=== PATIENT | female | born 1980 | race Two or more races ===

== ENCOUNTER → 2016-04-30 | Outpatient (CLI) | payer OTHER ==
[2016-04-11 14:30] VITALS: BP 92/57
[~2016-04-30] MED LIST: FERR-26 PO; PNV1TABL25 PO
[2016-04-30 12:50] LABS: BILIRUBIN,URINE NEGATIVE (NEG); GLUCOSE,URINE NEGATIVE (NEG); NITRITE,URINE POSITIVE (NEG); PH,URINE 5.5; PROTEIN,URINE NEGATIVE (NEG-TRACE); UROBILINOGEN,URINE 0.2 mg/dL (0.2 mg/dL)
[2016-04-30 12:53] LABS: HEMATOCRIT 30.6 % (36.0-47.0); HEMOGLOBIN 9.9 g/dL (12.0-15.5); RED BLOOD COUNT 3.86 x10^6/uL (3.50-5.40); RED CELL DISTRIBUTION WIDTH 18.5 % (11.5-14.5)
== END | disposition home or self-care (01) ==
LOC: LAB 12:29
PROVIDERS: ATTEND Family Medicine
DX: D64.9 Anemia, unspecified (principal); R30.0 Dysuria
CPT/HCPCS: 36415; 81003; 85027

== ENCOUNTER → 2017-04-13 | Outpatient (CLI) | payer OTHER ==
[2016-04-11 14:30] VITALS: BP 92/57
== END | disposition home or self-care (01) ==
LOC: SPEC 14:54
DX: N39.0 Urinary tract infection, site not specified (principal)
CPT/HCPCS: 87086

== ENCOUNTER → 2017-04-28 | Outpatient (CLI) | payer OTHER | END | disposition home or self-care (01) | LOC: KCIC US 08:06 | DX: O09.292 Supervision of pregnancy with other poor reproductive or obstetric history, second trimester (principal); Z3A.16 16 weeks gestation of pregnancy; N88.3 Incompetence of cervix uteri | CPT/HCPCS: 76801; 76817 ==

== ENCOUNTER → 2017-04-29 | Outpatient (CLI) | payer OTHER | END | disposition home or self-care (01) | LOC: SPEC 14:27 | DX: Z34.92 Encounter for supervision of normal pregnancy, unspecified, second trimester (principal); Z3A.14 14 weeks gestation of pregnancy | CPT/HCPCS: 87491; 87591 ==

== ENCOUNTER → 2017-05-01 | Outpatient (CLI) | payer OTHER ==
[2017-05-01 13:07] LABS: ADD MAN DIFF? NO
[2017-05-01 13:15] LABS: BASO # 0.1 x10^3/uL (0.0-0.2); BASO % 1 % (0-3); EOS # 0.1 x10^3/uL (0.0-0.7); EOS % 1 % (0-3); HEMATOCRIT 31.8 % (36.0-47.0); HEMOGLOBIN 10.2 g/dL (12.0-15.5); LYMPH # 1.6 x10^3/uL (1.0-4.8); LYMPH % 17 % (24-48); MEAN CORPUSCULAR HEMOGLOBIN 24 pg (25-35); MEAN CORPUSCULAR HGB CONC 32 g/dL (31-37); MEAN CORPUSCULAR VOLUME 75 fL (79-100); MONO # 0.4 x10^3/uL (0.0-1.1); MONO % 4 % (0-9); NEUT # 7.3 x10^3uL (1.8-7.7); NEUT % 77 % (31-73); PLATELET COUNT 223 x10^3/uL (140-400); RED BLOOD COUNT 4.27 x10^6/uL (3.50-5.40); RED CELL DISTRIBUTION WIDTH 18.6 % (11.5-14.5); WHITE BLOOD COUNT 9.4 x10^3/uL (4.0-11.0)
[2017-05-01 13:18] LABS: BILIRUBIN,URINE NEGATIVE (NEG); CLARITY,URINE CLEAR; COLOR,URINE YELLOW; GLUCOSE,URINE NEGATIVE (NEG); NITRITE,URINE NEGATIVE (NEG); PH,URINE 6.5; PROTEIN,URINE NEGATIVE (NEG-TRACE); UROBILINOGEN,URINE 0.2 mg/dL (0.2 mg/dL)
[2017-05-01 13:59] LABS: BACTERIA,URINE FEW /HPF (0-FEW); RBC,URINE 0 /HPF (0-2)
[2017-05-01 14:00] LABS: SQUAMOUS EPITHELIAL CELL,UR MOD /LPF
[2017-05-01 23:10] LABS: HIV ANTIBODY Non Reactive (Non Reactive)
[2017-05-02 01:10] LABS: HEP B SURFACE AG Negative (Negative)
[2017-05-03 21:11] LABS: RPR Non Reactive (Non Reactive)
== END | disposition home or self-care (01) ==
LOC: LAB 12:11
DX: Z34.92 Encounter for supervision of normal pregnancy, unspecified, second trimester (principal); Z3A.14 14 weeks gestation of pregnancy
CPT/HCPCS: 36415; 81001; 85025; 86593; 86703; 86762; 86850; 86900; 86901; 87086; 87340

== ENCOUNTER → 2017-05-11 | Outpatient (CLI) | payer OTHER ==
[2017-05-11 14:21] LABS: ADD MAN DIFF? NO
[2017-05-11 14:29] LABS: BASO % 0 % (0-3); EOS # 0.1 x10^3/uL (0.0-0.7); EOS % 1 % (0-3); HEMATOCRIT 32.6 % (36.0-47.0); HEMOGLOBIN 10.5 g/dL (12.0-15.5); LYMPH # 1.9 x10^3/uL (1.0-4.8); LYMPH % 19 % (24-48); MEAN CORPUSCULAR HEMOGLOBIN 25 pg (25-35); MEAN CORPUSCULAR HGB CONC 32 g/dL (31-37); MEAN CORPUSCULAR VOLUME 76 fL (79-100); MONO # 0.5 x10^3/uL (0.0-1.1); MONO % 5 % (0-9); NEUT # 7.4 x10^3uL (1.8-7.7); NEUT % 74 % (31-73); PLATELET COUNT 247 x10^3/uL (140-400); RED BLOOD COUNT 4.26 x10^6/uL (3.50-5.40); RED CELL DISTRIBUTION WIDTH 18.6 % (11.5-14.5); WHITE BLOOD COUNT 9.9 x10^3/uL (4.0-11.0)
[2017-05-11 14:45] LABS: ALBUMIN/GLOBULIN RATIO 0.8 (1.0-1.7); ALK PHOS 47 U/L (46-116); ALT (SGPT) 11 U/L (14-59); ANION GAP 10 (6-14); AST (SGOT) 13 U/L (15-37); BLOOD UREA NITROGEN 12 mg/dL (7-20); BUN/CREATININE RATIO 17 (6-20); CALCIUM 8.6 mg/dL (8.5-10.1); CARBON DIOXIDE 27 mmol/L (21-32); CHLORIDE 103 mmol/L (98-107); CREATININE 0.7 mg/dL (0.6-1.0); GFR 94.2; GLUCOSE 72 mg/dL (70-99); POTASSIUM 3.7 mmol/L (3.5-5.1); SODIUM 140 mmol/L (136-145); TOTAL BILIRUBIN 0.2 mg/dL (0.2-1.0)
== END | disposition home or self-care (01) ==
LOC: LAB 14:22
DX: R42 Dizziness and giddiness (principal); R51 Headache
CPT/HCPCS: 36415; 80053; 85025

== ENCOUNTER → 2017-06-03 | Outpatient (CLI) | payer OTHER | END | disposition home or self-care (01) | LOC: US 15:08 | DX: Z34.92 Encounter for supervision of normal pregnancy, unspecified, second trimester (principal); Z3A.19 19 weeks gestation of pregnancy | CPT/HCPCS: 76805 ==

== ENCOUNTER → 2017-08-03 | Outpatient (CLI) | payer OTHER ==
[2017-08-03 10:06] LABS: ADD MAN DIFF? NO
[2017-08-03 10:16] LABS: BASO % 1 % (0-3); EOS # 0.1 x10^3/uL (0.0-0.7); EOS % 1 % (0-3); HEMATOCRIT 34.3 % (36.0-47.0); HEMOGLOBIN 11.5 g/dL (12.0-15.5); LYMPH # 1.7 x10^3/uL (1.0-4.8); LYMPH % 21 % (24-48); MEAN CORPUSCULAR HEMOGLOBIN 28 pg (25-35); MEAN CORPUSCULAR HGB CONC 34 g/dL (31-37); MEAN CORPUSCULAR VOLUME 83 fL (79-100); MONO # 0.5 x10^3/uL (0.0-1.1); MONO % 7 % (0-9); NEUT # 5.6 x10^3uL (1.8-7.7); NEUT % 71 % (31-73); PLATELET COUNT 176 x10^3/uL (140-400); RED BLOOD COUNT 4.11 x10^6/uL (3.50-5.40); RED CELL DISTRIBUTION WIDTH 16.9 % (11.5-14.5)
[2017-08-04 06:21] LABS: RPR Non Reactive (Non Reactive)
== END | disposition home or self-care (01) ==
LOC: LAB 08:26
DX: Z34.93 Encounter for supervision of normal pregnancy, unspecified, third trimester (principal); Z3A.28 28 weeks gestation of pregnancy
CPT/HCPCS: 36415; 82950; 85025; 86593

== ENCOUNTER 2017-10-12 15:05 | Observation (INO) | payer OTHER ==
[2017-10-12 16:50] LABS: AMNIO PT NEGATIVE; NEG OBC AMNIO NEG; POS OBC AMNIO POS
== END 2017-10-12 18:30 | disposition home or self-care (01) ==
LOC: 3 SO LND 15:05
DX: O99.89 Other specified diseases and conditions complicating pregnancy, childbirth and the puerperium (principal); M54.9 Dorsalgia, unspecified; Z3A.37 37 weeks gestation of pregnancy
CPT/HCPCS: 36415; 84112; G0378; G0379

== ENCOUNTER 2017-10-28 00:20 | Inpatient (IN) | payer OTHER ==
[2017-10-28 00:45] LABS: BILIRUBIN,URINE NEGATIVE (NEG); CLARITY,URINE CLEAR; COLOR,URINE YELLOW; GLUCOSE,URINE NEGATIVE (NEG); NITRITE,URINE NEGATIVE (NEG); PROTEIN,URINE NEGATIVE (NEG-TRACE); UROBILINOGEN,URINE 0.2 mg/dL (0.2 mg/dL)
[2017-10-28 01:04] LABS: BACTERIA,URINE MODERATE /HPF (0-FEW); RBC,URINE RARE /HPF (0-2)
[2017-10-28 01:05] LABS: SQUAMOUS EPITHELIAL CELL,UR MOD /LPF
[2017-10-28] MEDS: IV RINGERS,LACTATED 1000ML 1,000 ML IV (01:23)
[2017-10-28] MEDS ORDERED: ONDANSETRON PF 4 MG/2 ML VIAL. IV (02:30)
[2017-10-28] MEDS ORDERED: IV RINGERS,LACTATED 1000ML 1,000 ML IV (02:30)
[2017-10-28] MEDS ORDERED: LIDOCAINE 1% PF 30 ML VIAL. INJ (02:30)
[2017-10-28] MEDS ORDERED: TERBUTALINE 1 MG/ML VIAL. SQ (02:30)
[2017-10-28] MEDS ORDERED: OXYTOCIN 30 UNIT/500 ML PREMIX 500 ML IV (02:30)
[2017-10-28] MEDS ORDERED: 0.9 % SODIUM CHLORIDE 10 ML DISP.SYRIN. IV (02:30)
[2017-10-28 03:02] LABS: ADD MAN DIFF? NO
[2017-10-28 03:11] LABS: BASO # 0.1 x10^3/uL (0.0-0.2); BASO % 1 % (0-3); EOS % 0 % (0-3); HEMOGLOBIN 11.3 g/dL (12.0-15.5); LYMPH # 2.6 x10^3/uL (1.0-4.8); LYMPH % 20 % (24-48); MEAN CORPUSCULAR HEMOGLOBIN 27 pg (25-35); MEAN CORPUSCULAR HGB CONC 33 g/dL (31-37); MEAN CORPUSCULAR VOLUME 82 fL (79-100); MONO # 0.8 x10^3/uL (0.0-1.1); MONO % 6 % (0-9); NEUT # 9.4 x10^3uL (1.8-7.7); NEUT % 73 % (31-73); PLATELET COUNT 199 x10^3/uL (140-400); RED BLOOD COUNT 4.14 x10^6/uL (3.50-5.40); RED CELL DISTRIBUTION WIDTH 15.4 % (11.5-14.5); WHITE BLOOD COUNT 12.9 x10^3/uL (4.0-11.0)
[2017-10-28] MEDS ORDERED: L&D EPIDURAL SYRINGE 50 ML EP (03:37)
[2017-10-28] MEDS ORDERED: ROPIVacaine 0.2% IN 0.9%NACL PF 40 MG/20 ML DISP.SYRIN. ×2 (03:37→04:00)
[2017-10-28] MEDS ORDERED: OXYTOCIN PREMIX 30 UNIT/500 ML BAG. IV (04:00)
[2017-10-28] MEDS ORDERED: L&D EPIDURAL 50 ML SYRINGE. EP (04:00)
[2017-10-28] MEDS: IBUPROFEN 800 MG TABLET. PO ×2 (06:39→17:45)
[2017-10-28] MEDS: OXYTOCIN 30 UNIT/500 ML PREMIX 500 ML IV (07:47)
[2017-10-28] MEDS ORDERED: BENZOCAINE 20% TOPICAL AEROSOL SPRAY 57GM CAN. TP (09:30)
[2017-10-28] MEDS: ACETAMINOPHEN 325 MG TABLET. PO (22:00)
[2017-10-29] MEDS: IBUPROFEN 800 MG TABLET. PO ×2 (03:33→17:27)
[2017-10-29 05:37] LABS: HEMATOCRIT 25.3 % (36.0-47.0)
[2017-10-29 05:37] LABS: HEMOGLOBIN 8.4 g/dL (12.0-15.5)
[2017-10-29] MEDS: ACETAMINOPHEN 325 MG TABLET. PO (07:55)
[2017-10-29] MEDS: DOCUSATE SODIUM 100 MG CAPSULE. PO (17:27)
[2017-10-29] MEDS: FERROUS SULFATE 325 MG TABLET. PO (17:28)
[2017-10-30] MEDS: DOCUSATE SODIUM 100 MG CAPSULE. PO (09:29)
[2017-10-30] MEDS: FERROUS SULFATE 325 MG TABLET. PO (09:29)
[2017-10-30] MEDS: medroxyPROGESTERone IM 150 MG/ML VIAL. IM (12:06)
== END 2017-10-30 13:00 | disposition home or self-care (01) | DRG 775 ==
LOC: 3 SO LND 00:20 → 3 NORTH 09:23
PROC: 10E0XZZ Delivery of Products of Conception, External Approach (ICD-10-PCS; principal; 2017-10-28)
PROC: 0DQR0ZZ Repair Anal Sphincter, Open Approach (ICD-10-PCS; 2017-10-28)
PROC: 00HU33Z Insertion of Infusion Device into Spinal Canal, Percutaneous Approach (ICD-10-PCS; 2017-10-28)
PROC: 3E0R3BZ Introduction of Anesthetic Agent into Spinal Canal, Percutaneous Approach (ICD-10-PCS; 2017-10-28)
DX: O77.0 Labor and delivery complicated by meconium in amniotic fluid (principal); O70.20 Third degree perineal laceration during delivery, unspecified; D62 Acute posthemorrhagic anemia; Z37.0 Single live birth; Z3A.39 39 weeks gestation of pregnancy; O69.81X0 Labor and delivery complicated by cord around neck, without compression, not applicable or unspecified; O66.0 Obstructed labor due to shoulder dystocia; D64.9 Anemia, unspecified
CPT/HCPCS: 36415; 81001; 85014; 85018; 85025; 85027; 86592; 86850; 86900; 86901; 87086; G0378; J2590; J2795; J7120

== ENCOUNTER → 2019-09-23 | Outpatient (CLI) | payer OTHER ==
[2017-10-30 11:38] VITALS: BP 107/64
[~2019-09-23] MED LIST changes: -FERR-26 PO; +FERR325T14 PO
[2019-09-23 11:42] LABS: HEMATOCRIT 38.6 % (36.0-47.0); HEMOGLOBIN 12.9 g/dL (12.0-15.5); RED BLOOD COUNT 4.49 x10^6/uL (3.50-5.40); RED CELL DISTRIBUTION WIDTH 14.7 % (11.5-14.5); WHITE BLOOD COUNT 6.1 x10^3/uL (4.0-11.0)
[2019-09-23 11:53] LABS: ALBUMIN 3.9 g/dL (3.4-5.0); ALBUMIN/GLOBULIN RATIO 1.3 (1.0-1.7); CALCIUM 8.8 mg/dL (8.5-10.1); GFR 61.7; POTASSIUM 4.4 mmol/L (3.5-5.1); TOTAL BILIRUBIN 0.4 mg/dL (0.2-1.0)
[2019-09-23 23:08] LABS: HEMOGLOBIN A1C 5.1 % (4.8-5.6)
== END | disposition home or self-care (01) ==
LOC: LAB 11:15
PROVIDERS: ATTEND Family Medicine
DX: Z86.32 Personal history of gestational diabetes (principal); Z86.2 Personal history of diseases of the blood and blood-forming organs and certain disorders involving the immune mechanism
CPT/HCPCS: 36415; 80053; 83036; 84436; 84443; 85027

== ENCOUNTER → 2020-02-29 | Outpatient (CLI) | payer OTHER ==
[2017-10-30 11:38] VITALS: BP 107/64
[2020-03-01 03:09] LABS: HEMOGLOBIN A1C 5.1 % (4.8-5.6)
== END ==
LOC: LAB 11:02
PROVIDERS: ATTEND Nurse Practitioner Gerontology
DX: R73.9 Hyperglycemia, unspecified (principal)
CPT/HCPCS: 36415; 83036

== ENCOUNTER → 2021-01-17 | Outpatient (CLI) | payer OTHER ==
[2017-10-30 11:38] VITALS: BP 107/64
[2021-01-17 08:47] LABS: BASO % 0 % (0-3); EOS # 0.1 x10^3/uL (0.0-0.7); EOS % 1 % (0-3); HEMATOCRIT 40.4 % (36.0-47.0); HEMOGLOBIN 13.5 g/dL (12.0-15.5); LYMPH # 1.6 x10^3/uL (1.0-4.8); LYMPH % 18 % (24-48); MEAN CORPUSCULAR HEMOGLOBIN 28 pg (25-35); MEAN CORPUSCULAR HGB CONC 34 g/dL (31-37); MEAN CORPUSCULAR VOLUME 85 fL (79-100); MONO # 0.4 x10^3/uL (0.0-1.1); MONO % 5 % (0-9); NEUT # 6.7 x10^3/uL (1.8-7.7); NEUT % 76 % (31-73); PLATELET COUNT 235 x10^3/uL (140-400); RED BLOOD COUNT 4.78 x10^6/uL (3.50-5.40); RED CELL DISTRIBUTION WIDTH 13.8 % (11.5-14.5); WHITE BLOOD COUNT 8.9 x10^3/uL (4.0-11.0)
[2021-01-17 09:22] LABS: ALBUMIN/GLOBULIN RATIO 1.2 (1.0-1.7); CALCIUM 8.9 mg/dL (8.5-10.1); GFR 61.4; POTASSIUM 4.3 mmol/L (3.5-5.1); TOTAL BILIRUBIN 0.4 mg/dL (0.2-1.0); TOTAL PROTEIN 7.3 g/dL (6.4-8.2)
== END ==
LOC: LAB 08:17
PROVIDERS: ATTEND Nurse Practitioner
DX: Z13.220 Encounter for screening for lipoid disorders (principal); L65.9 Nonscarring hair loss, unspecified; F32.89 Other specified depressive episodes; E55.9 Vitamin D deficiency, unspecified; Z86.2 Personal history of diseases of the blood and blood-forming organs and certain disorders involving the immune mechanism
CPT/HCPCS: 36415; 80053; 80061; 82306; 84443; 85025

== ENCOUNTER → 2021-05-12 | Outpatient (CLI) | payer OTHER ==
[2017-10-30 11:38] VITALS: BP 107/64
== END ==
LOC: LAB 15:45
PROVIDERS: ATTEND Internal Medicine Pulmonary Disease
DX: U07.1 COVID-19 (principal); R19.7 Diarrhea, unspecified; R09.81 Nasal congestion; R43.9 Unspecified disturbances of smell and taste
CPT/HCPCS: U0003; U0005